=== PATIENT | female | born 1985 | race African-American/Black ===

== ENCOUNTER 2016-11-03 19:00 | Emergency (ER) | payer OTHER ==
[~2016-11-03] VITALS: Ht 170.2 cm; Wt 72.6 kg
[2016-11-03 19:10] VITALS: BP 151/99
--- NOTE | 2016-11-03 20:23 | PHYS DOC ---
Past Medical History Past Medical History: No Pertinent History Past Surgical History: Tubal ligation Additional Past Surgical Histo: right arm Additional Information: "SHARES" 1-2 CIGARETTES A DAY Alcohol Use: Occasionally Drug Use: Marijuana Adult General Chief Complaint Chief Complaint: ELBOW PROBLEM [facility] HPI Patient is a 31 year old female resents to emergency department stating she is having left elbow pain that radiates to the shoulder and down into the wrist. She states that she's been old laundry alternate pain. She states that she is taken 800 mg of ibuprofen as well as a shot occurred help with the pain and discomfort. She had apparently at this time does not have any numbness or tingling down to her fingers. Peripheral pulses are 2+ cap refill brisk less than 2 seconds. Review of Systems Review of Systems Constitutional: Denies fever or chills [] Eyes: Denies change in visual acuity, redness, or eye pain [] HENT: Denies nasal congestion or sore throat [] Respiratory: Denies cough or shortness of breath [] Cardiovascular: No additional information not addressed in HPI [] GI: Denies abdominal pain, nausea, vomiting, bloody stools or diarrhea [] : Denies dysuria or hematuria [] Musculoskeletal: Denies back pain. C/o left elbow pain Integument: Denies rash or skin lesions [] Neurologic: Denies headache, focal weakness or sensory changes [] Endocrine: Denies polyuria or polydipsia [] Allergies Allergies Allergies Coded Allergies Type Severity Reaction Last Updated Verified No Known Drug Allergies 07/31/15 No Physical Exam Physical Exam Constitutional: Well developed, well nourished, no acute distress, non-toxic appearance. [] HENT: Normocephalic, atraumatic, bilateral external ears normal, oropharynx moist, no oral exudates, nose normal. [] Eyes: PERRLA, EOMI, conjunctiva normal, no discharge. [] Neck: Normal range of motion, no tenderness, supple, no stridor. [] Cardiovascular:Heart rate regular rhythm, no murmur [] Lungs & Thorax: Bilateral breath sounds clear to auscultation [] Abdomen: Bowel sounds normal, soft, no tenderness, no masses, no pulsatile masses. [] Skin: Warm, dry, no erythema, no rash. [] Back: No tenderness Extremities: Left elbow tenderness, no cyanosis, no clubbing, ROM intact, no edema. Peripheral pulses 2+ cap refill brisk less than 2 seconds. Patient with full ROM noted Neurologic: Alert and oriented X 3, normal motor function, normal sensory function, no focal deficits noted. [] Psychologic: Affect normal, judgement normal, mood normal. [] Current Patient Data Vital Signs Vital Signs Date Time Temp Pulse Resp B/P (MAP) Pulse Ox O2 Delivery O2 Flow Rate FiO2 11/03/16 19:10 98.8 104 20 98 Room Air 98.8 EKG EKG [] Radiology/Procedures Radiology/Procedures [] Course & Med Decision Making Course & Med Decision Making Pertinent Labs and Imaging studies reviewed. (See chart for details) [place] negative for any bony abnormalities per Dr. Lewis. Patient will be placed in a sling with recommendations for ice packs on 20 minutes off 20 minutes several times a day. We'll also recommended ibuprofen for pain and discomfort. Patient will be discharged home in stable condition recommended using the sling for the next 3-4 days. No lifting over 5 pounds. Patient agrees with discharge instructions treatment regimens and follow-up recommendations. [] Dragon Disclaimer Dragon Disclaimer This electronic medical record was generated, in whole or in part, using a voice recognition dictation system. Departure Departure Impression: Primary Impression: Overuse syndrome of elbow Disposition: 01 HOME, SELF-CARE Condition: STABLE Referrals: NO PCP (PCP) Patient Instructions: Tennis Elbow, [id number] Additional Instructions: Activity as tolerated. Wear the sling for the next 3-4 days. Take your arm out of the sling every 3-4 hours and do active range of motion to prevent the elbow from walking up. Ibuprofen 800 mg every 8 hours with food stop taking few develop an upset stomach. Ice packs on 20 minutes off 20 minutes several times a day. Follow-up with orthopedic 40 further pain and discomfort. Return back to emergency prior signs symptoms of become worse. Scripts No Active Prescriptions or Reported Meds RUDI JAIMES [employer] November 03, 2016 20:23
--- NOTE | 2016-11-04 08:18 | RAD ---
Indication elbow pain. AP oblique and lateral views of the left elbow were obtained. No bony abnormality is seen
== END 2016-11-03 20:31 | disposition home or self-care (01) ==
LOC: ER 19:00
DX: M70.842 Other soft tissue disorders related to use, overuse and pressure, left hand (principal); F12.10 Cannabis abuse, uncomplicated; F17.210 Nicotine dependence, cigarettes, uncomplicated; Z98.890 Other specified postprocedural states; Y93.E2 Activity, laundry; Y99.8 Other external cause status; Y92.89 Other specified places as the place of occurrence of the external cause
CPT/HCPCS: 73080; 99284